=== PATIENT | female | born 1975 | race Caucasian/White ===

== ENCOUNTER 2017-04-02 23:20 | Emergency (ER) | payer SELFPAY ==
[2017-04-02 23:40] VITALS: O2SAT 97
[2017-04-03] MEDS ORDERED: OSELTAMIVIR 75 MG CAP PO ONE (00:16)
--- NOTE | 2017-04-03 00:19 | ED.PDOC ---
History of Present Illness - General Chief Complaint: Respiratory Problem Stated Complaint: cough, sore throat, "feels like fire" Time Seen by Provider: 04/02/17 23:42 Source: patient Exam Limitations: no limitations - History of Present Illness Initial Comments: the patient is a 42-year-old female presenting to emergency room secondary to sore throat and runny nose and mild cough with some body aches and mild headache for the last 3-4 days. She has been taking [id number] cold medications and ibuprofen. Mainly her throat aguayo. Timing/Duration: unsure Severity: moderate Improving Factors: nothing Worsening Factors: nothing Associated Symptoms: cough, fever/chills, loss of appetite, malaise Allergies/Adverse Reactions: Allergies NO KNOWN ALLERGY Allergy (Verified 04/02/17 23:40) Home Medications: Ambulatory Orders Oseltamivir Capsule [Tamiflu] 75 mg PO BID 5 Days #10 capsule 04/03/17 Review of Systems - Review of Systems Constitutional: States: fever, malaise EENTM: States: nose congestion, throat pain Respiratory: States: cough Cardiology: States: no symptoms reported Gastrointestinal/Abdominal: States: no symptoms reported Genitourinary: States: no symptoms reported Musculoskeletal: States: no symptoms reported Skin: States: no symptoms reported Neurological: States: no symptoms reported Endocrine: States: no symptoms reported All other Systems: No Change from Baseline Past Medical History (General) - Patient Medical History Hx Asthma: No Hx Cardiac Disorders: No Hx Congestive Heart Failure: No Hx Diabetes: No Hx Gastroesophageal Reflux: No Surgical History: other - Vaccination History Hx Tetanus, Diphtheria Vaccination: No Hx Influenza Vaccination: No Hx Pneumococcal Vaccination: No - Social History Hx Tobacco Use: No Hx Alcohol Use: No Family Medical History - Family History Mother Family History: Unknown Physical Exam - Physical Exam General Appearance: Alert, Anxious, No apparent distress Eye Exam: bilateral normal Ears, Nose, Throat: hearing grossly normal, nasal congestion, pharyngeal erythema Neck: full range of motion, supple Respiratory: lungs clear, normal breath sounds, no respiratory distress, no accessory muscle use Cardiovascular/Chest: normal peripheral pulses, regular rate, rhythm, no edema Peripheral Pulses: radial,right: 2+, radial,left: 2+ Gastrointestinal/Abdominal: non tender, soft Rectal Exam: deferred Back Exam: normal inspection Extremity: normal range of motion, non-tender, normal inspection, no pedal edema , normal capillary refill 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 She has tested negative for strep. She needs to keep herself well hydrated. Alternate Motrin and Tylenol to reduce symptoms. A humidifier at night may help. She'll be placed on Tamiflu twice daily for 5 days. ER warnings were given for any worsening. Departure - Departure Clinical Impression: Influenza B Disposition: Discharge to Home or Self Care Condition: Fair Departure Forms: ED Discharge - Pt. Copy, Patient Portal Self Enrollment Instructions: Influenza Diet: regular diet Activity: increase activity as tolerated Referrals: ASHLEY RODAS FNP [Primary Care Provider] - 1-2 Weeks Prescriptions: Oseltamivir Capsule [Tamiflu] 75 mg PO BID 5 Days #10 capsule Home Medications: Ambulatory Orders Oseltamivir Capsule [Tamiflu] 75 mg PO BID 5 Days #10 capsule 04/03/17 Additional Instructions: the patient's a 42-year-old female presenting to the emergency room with what is tested to be flu B. She has tested negative for strep. She needs to keep herself well hydrated. Alternate Motrin and Tylenol to reduce symptoms. A humidifier at night may help. She'll be placed on Tamiflu twice daily for 5 days. ER warnings were given for any worsening.
[2017-04-03 00:45] VITALS: BP 147/75; TEMP 100.1
== END 2017-04-03 00:40 | disposition home or self-care (01) ==
LOC: ER 23:20
DX: J10.1 Influenza due to other identified influenza virus with other respiratory manifestations (principal)

== ENCOUNTER 2018-11-10 23:58 | Emergency (ER) | payer SELFPAY ==
[2018-11-11 01:22] VITALS: TEMP 98.7; O2SAT 99
[2018-11-11 01:27] VITALS: BP 138/98
== END 2018-11-11 01:31 | disposition home or self-care (01) ==
LOC: ER 23:58
DX: T22.211A Burn of second degree of right forearm, initial encounter (principal); T21.22XA Burn of second degree of abdominal wall, initial encounter; T31.0 Burns involving less than 10% of body surface; Z23 Encounter for immunization; X10.2XXA Contact with fats and cooking oils, initial encounter; Y93.G3 Activity, cooking and baking; Y92.9 Unspecified place or not applicable
CPT/HCPCS: 90471; 90715; J1170; J1200; J2405